=== PATIENT | female | born 1985 | race Caucasian/White ===

== ENCOUNTER 2017-12-27 21:54 | Emergency (ER) | payer SELFPAY ==
[2017-12-27 23:27] LABS: Hemoglobin 12.8 gm/dl (10.1-14.3); Mean Corpuscular HGB Conc 34 % (30-34); Mean Corpuscular Hemoglobin 28 pg (28-32); Mean Corpuscular Volume 84 fl (79-97); Platelet Count 288 K/mm3 (140-440); Red Blood Count 4.53 M/mm3 (3.65-5.03); Red Cell Distribution Width 14.4 % (13.2-15.2)
[2017-12-28] LABS: BUN/Creatinine Ratio 23; Blood Urea Nitrogen 14 mg/dL (7-17); Calcium 9.1 mg/dL (8.4-10.2); Hemolysis Index 6
[2017-12-28 00:45] LABS: Bacteria,Urine 1+ /HPF (Negative); Bilirubin,Urine NEG (Negative); Blood,Urine SM (Negative); Color,Urine Yellow (Yellow); Mucus,Urine 2+ /HPF; Protein,Urine <15 mg/dL mg/dL (Negative); Urobilinogen,Urine < 2.0 mg/dL (<2.0)
[2017-12-28] MEDS ORDERED: NORCO 5/325 PO ONE (03:07)
--- NOTE | 2017-12-28 03:07 | Emergency Department Report ---
HPI - General Chief Complaint: Vaginal Bleeding Time Seen by Provider: 12/28/17 02:53 - HPI HPI: Room 3 The patient is a 32-year-old female presenting with a chief complaint of vaginal bleeding. The patient states she hadn't had a cycle for the past 2 months. Patient states 2 days ago she developed intermittent left pelvic pain and then passed a large blood clot. The patient showed me a picture of the clot on her phone which appears to be mostly blood clot but the lighting makes it difficult to assess if there is tissue present as well. The patient states she's had vaginal bleeding since passing this clot and has been going through 3- 4 pads per day. The nausea and dizziness. Patient denies fever or any other forms of pain. The patient states she took home test when she missed her cycle and the results were equivocal Location: Pelvis Duration: Intermittent for 3 days Quality: Pressure Severity: 9/10 Modifying factors: [see above] Context: [see above] Mode of transportation: Not driving. Significant other is at bedside and he is driving ED Past Medical Hx - Past Medical History Previous Medical History?: No - Surgical History Additional Surgical History: Bilateral tubal ligation - Family History Family history: no significant - Social History Smoking Status: Never Smoker Substance Use Type: None (denies illicit drug use), Alcohol (occasional) - Medications Home Medications: Home Medications Medication Instructions Recorded Confirmed Last Taken Type Ibuprofen [Motrin 800 MG tab] 800 mg PO Q8HR PRN #20 tablet 12/28/17 Unknown Rx medroxyPROGESTERone ACETATE 5 mg PO QDAY #10 tablet 12/28/17 Unknown Rx [Provera] traMADol [Ultram] 50 mg PO Q6HR PRN #14 tablet 12/28/17 Unknown Rx ED Review of Systems ROS: Stated complaint: POSS MISCARRIAGE Other details as noted in HPI Constitutional: denies: fever Eyes: denies: eye pain ENT: denies: throat pain Respiratory: no symptoms reported Cardiovascular: denies: chest pain Endocrine: no symptoms reported Gastrointestinal: abdominal pain, nausea. denies: vomiting Genitourinary: abnormal menses Musculoskeletal: denies: back pain Neurological: denies: headache Physical Exam - Physical Exam Vital Signs: Vital Signs 12/27/17 12/27/17 12/28/17 22:03 22:45 02:30 Temperature 98.4 F 98.4 F Pulse Rate 79 83 65 Respiratory 18 18 14 Rate Blood Pressure 112/89 112/89 Blood Pressure 104/51 [Left] O2 Sat by Pulse 98 98 100 Oximetry 12/28/17 02:31 Temperature Pulse Rate Respiratory 16 Rate Blood Pressure Blood Pressure [Left] O2 Sat by Pulse 100 Oximetry Physical Exam: GENERAL: The patient is well-developed well-nourished female sitting on stretcher not appear to be in acute distress. [] HEENT: Normocephalic. Atraumatic. Extraocular motions are intact. Patient has moist mucous membranes. NECK: Supple. Trachea midline CHEST/LUNGS: Clear to auscultation. There is no respiratory distress noted. HEART/CARDIOVASCULAR: Regular. There is no tachycardia. There is no gallop rub or murmur. ABDOMEN: Abdomen is soft, with mild discomfort to palpation of the left lower quadrant. Patient has normal bowel sounds. There is no abdominal distention. SKIN: There is no rash. There is no edema. There is no diaphoresis. NEURO: The patient is awake, alert, and oriented. The patient is cooperative. The patient has normal speech MUSCULOSKELETAL: There is no evidence of acute injury. ED Course Vital Signs 12/27/17 12/27/17 12/28/17 22:03 22:45 02:30 Temperature 98.4 F 98.4 F Pulse Rate 79 83 65 Respiratory 18 18 14 Rate Blood Pressure 112/89 112/89 Blood Pressure 104/51 [Left] O2 Sat by Pulse 98 98 100 Oximetry 12/28/17 02:31 Temperature Pulse Rate Respiratory 16 Rate Blood Pressure Blood Pressure [Left] O2 Sat by Pulse 100 Oximetry ED Medical Decision Making - Lab Data Result diagrams: 12/27/17 23:09 12/27/17 23:09 Laboratory Tests 12/27/17 12/27/17 12/27/17 23:09 23:09 23:09 WBC 7.4 RBC 4.53 Hgb 12.8 Hct 38.0 MCV 84 MCH 28 MCHC 34 RDW 14.4 Plt Count 288 Sodium 140 Potassium 4.2 Chloride 102.0 Carbon Dioxide 25 Anion Gap 17 BUN 14 Creatinine 0.6 L Estimated GFR > 60 BUN/Creatinine Ratio 23 Glucose 114 H Calcium 9.1 HCG, Quant < 2 Urine Color Urine Turbidity Urine pH Ur Specific [place] Urine Protein Urine Glucose (UA) Urine Ketones Urine Blood Urine Nitrite Urine Bilirubin Urine Urobilinogen Ur Leukocyte Esterase Urine WBC (Auto) Urine RBC (Auto) U Epithel Cells (Auto) Urine Bacteria (Auto) Urine Mucus 12/27/17 23:12 WBC RBC Hgb Hct MCV MCH MCHC RDW Plt Count Sodium Potassium Chloride Carbon Dioxide Anion Gap BUN Creatinine Estimated GFR BUN/Creatinine Ratio Glucose Calcium HCG, Quant Urine Color Yellow Urine Turbidity Slightly-cloudy Urine pH 5.0 Ur Specific [place] 1.031 H Urine Protein <15 mg/dl Urine Glucose (UA) Neg Urine Ketones Neg Urine Blood Sm Urine Nitrite Neg Urine Bilirubin Neg Urine Urobilinogen < 2.0 Ur Leukocyte Esterase Lg Urine WBC (Auto) 23.0 H Urine RBC (Auto) 12.0 U Epithel Cells (Auto) 5.0 Urine Bacteria (Auto) 1+ Urine Mucus 2+ - Radiology Data Radiology results: report reviewed (pelvic ultrasound), image reviewed (pelvic ultrasound) [facility] [address] [place] [address] Ultrasound Report Signed Patient: COREEN VILLAREAL MR#: [id number] : 1985 Acct:[id number] Age/Sex: 32 / F ADM Date: 12/27/17 Loc: ED Attending Dr: Ordering Physician: JACK HOOK MD Date of Service: 12/28/17 Procedure(s): US transvaginal Accession Number(s): [id number] cc: JACK HOOK MD FINAL REPORT EXAM : US TRANSVAGINAL HISTORY: menorrhagia TECHNIQUE: Transvaginal imaging was obtained the pelvis. FINDINGS: The uterus is anteverted measuring 8.3 cm x 4.2 cm x 7.3 cm. The endometrial thickness is 1.9 mm. The myometrium is homogeneous. In the cervix is a nabothian cysts with internal echoes measuring 1.3 cm in diameter. Free fluid is not seen. The left ovary is normal size contour and echotexture measuring 2.6 cm x 1.8 cm x 1.7 cm. The right ovary measures 3.2 cm x 1.6 cm x 2.8 cm. Within the right ovary is a benign follicle measuring 8 mm in diameter. IMPRESSION: Normal-appearing endometrium. 1.3 cm nabothian cysts in the cervix. No evidence of ovarian torsion or free fluid. 8 millimeter benign follicle in the right ovary. Transcribed By: RB Dictated By: TARAS RUSHING MD Electronically Authenticated By: TARAS RUSHING MD Signed Date /Time: 12/28/17345 DD/ 5 TD/TT: 12/28/17345 - Medical Decision Making Patient states she been going through approximately 3-4 pads per day and her normal cycle she usually uses one to 2 pads per day. The patient states her normal cycle lasts approximately 3-4 days. Patient will be given a prescription for Provera but she was urged not to begin taking it unless her cycles persisted over the next 3 days and continue to be heavier than normal. Patient verbalized understanding. - Differential Diagnosis menorrhagia, dysmenorrhea, pelvic cramping, ovarian cyst Critical care attestation.: If time is entered above; I have spent that time in minutes in the direct care of this critically ill patient, excluding procedure time. ED Disposition Clinical Impression: Abnormal vaginal bleeding Disposition: TO HOME OR SELFCARE Is pt being admited?: No Does the pt Need Aspirin: No Condition: Stable Instructions: Menorrhagia (ED) Additional Instructions: Return to the emergency department immediately should you develop worsening symptoms, fever, inability to tolerate food or liquid or any other concerns. Prescriptions: Ibuprofen [Motrin 800 MG tab] 800 mg PO Q8HR PRN #20 tablet PRN Reason: Pain, Moderate (4-6) medroxyPROGESTERone ACETATE [Provera] 5 mg PO QDAY #10 tablet traMADol [Ultram] 50 mg PO Q6HR PRN #14 tablet PRN Reason: Pain Referrals: AGUEDA ROSS JR, MD [Staff Physician] - 3-5 Days (Dr. Ross is a primary physician. Please follow up with him to be established as a patient) [facility] [Provider Group] - 3-5 Days (Please follow up with my OB/ [facility] for further evaluation) Time of Disposition: 04:24
--- NOTE | 2017-12-28 03:52 | Ultrasound Report ---
FINAL REPORT EXAM: US PELVIC COMPLETE HISTORY: menorrhagia TECHNIQUE: Transabdominal imaging was obtained of the pelvis. FINDINGS: The uterus is anteverted measuring 8.3 cm x 4.2 cm x 7.3 cm. The endometrial thickness is 1.9 mm. The myometrium is homogeneous. In the cervix there is a nabothian cyst measuring 1.3 cm in diameter. Free fluid is not seen. The left ovary is normal size contour and echotexture measuring 2.6 cm x 1.8 cm x 1.7 cm. The right ovary is normal size contour and echotexture measuring 3.2 cm x 0.8 cm x 2.8 cm. Within the right ovary is an 8 millimeter follicle. IMPRESSION: 1.3 cm nabothian cyst in the cervix. No evidence of ovarian torsion or free fluid. Benign-appearing follicle in the right ovary measuring 8 mm in diameter.
--- NOTE | 2017-12-28 03:53 | Ultrasound Report ---
FINAL REPORT EXAM: US TRANSVAGINAL HISTORY: menorrhagia TECHNIQUE: Transvaginal imaging was obtained the pelvis. FINDINGS: The uterus is anteverted measuring 8.3 cm x 4.2 cm x 7.3 cm. The endometrial thickness is 1.9 mm. The myometrium is homogeneous. In the cervix is a nabothian cysts with internal echoes measuring 1.3 cm in diameter. Free fluid is not seen. The left ovary is normal size contour and echotexture measuring 2.6 cm x 1.8 cm x 1.7 cm. The right ovary measures 3.2 cm x 1.6 cm x 2.8 cm. Within the right ovary is a benign follicle measuring 8 mm in diameter. IMPRESSION: Normal-appearing endometrium. 1.3 cm nabothian cysts in the cervix. No evidence of ovarian torsion or free fluid. 8 millimeter benign follicle in the right ovary.
[2017-12-28 04:32] VITALS: BP 109/66
== END 2017-12-28 04:34 | disposition home or self-care (01) ==
LOC: ED 21:54
DX: N93.9 Abnormal uterine and vaginal bleeding, unspecified (principal); R10.2 Pelvic and perineal pain; R11.0 Nausea; Z98.51 Tubal ligation status; Z88.8 Allergy status to other drugs, medicaments and biological substances
CPT/HCPCS: 36415; 76830; 76856; 80048; 81001; 84702; 85027; 99284

== ENCOUNTER 2018-10-27 08:45 | Emergency (ER) | payer MEDICAID, OTHER ==
[2018-10-27 08:52] VITALS: BP 130/100
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
[2018-10-27 09:36] LABS: Hematocrit 38.3 % (30.3-42.9); Hemoglobin 12.8 gm/dl (10.1-14.3); Mean Corpuscular HGB Conc 34 % (30-34); Mean Corpuscular Volume 84 fl (79-97); Platelet Count 281 K/mm3 (140-440); Red Blood Count 4.57 M/mm3 (3.65-5.03); Red Cell Distribution Width 14.5 % (13.2-15.2)
[2018-10-27 09:53] LABS: BUN/Creatinine Ratio 23; Blood Urea Nitrogen 14 mg/dL (7-17); Hemolysis Index 5
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
[2018-10-27] MEDS ORDERED: DECADRON IM ONE (11:08)
[2018-10-27] MEDS ORDERED: NORCO 5/325 PO ONE (11:08)
[2018-10-27] MEDS ORDERED: IBUPROFEN PO ONE (11:37)
[2018-10-27] MEDS ORDERED: IBUPROFEN ONE (11:39)
== END 2018-10-27 12:04 | disposition home or self-care (01) ==
LOC: ED 08:45
DX: S00.83XA Contusion of other part of head, initial encounter (principal); Y04.8XXA Assault by other bodily force, initial encounter; Y93.89 Activity, other specified; Y92.89 Other specified places as the place of occurrence of the external cause; Y99.8 Other external cause status
CPT/HCPCS: 36415; 70450; 70486; 72125; 80048; 84702; 85027; 96372; 99284; J1100

== ENCOUNTER 2019-11-07 05:59 | Emergency (ER) | payer SELFPAY ==
[2019-11-07] MEDS ORDERED: ONDANSETRON 4 MG ODT TAB PO ONE (06:36)
--- NOTE | 2019-11-07 06:39 | Emergency Department Report ---
- General Chief Complaint: Upper Respiratory Infection Stated Complaint: SORE THROAT, COUGH, SHORT OF BREATH Time Seen by Provider: 11/07/19 06:31 Source: patient Mode of arrival: Ambulatory Limitations: No Limitations - History of Present Illness Initial Comments: Patient is 34-year-old female with history of asthma. Patient presented to the ER complaining of fever, congestion, sore throat and difficulty breathing for the last 2 days. 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 Patient stated that she has been tested on Thursday but she does not have the results yet. Patient stated that she is having decreased appetite and diarrhea. MD Complaint: fever, cough, sore throat, nasal congestion - Related Data Previous Rx's Medication Instructions Recorded Last Taken Type Ibuprofen [Motrin 800 MG tab] 800 mg PO Q8HR PRN #20 tablet 12/28/17 Unknown Rx medroxyPROGESTERone ACETATE 5 mg PO QDAY #10 tablet 12/28/17 Unknown Rx [Provera] traMADoL [Ultram] 50 mg PO Q6HR PRN #14 tablet 12/28/17 Unknown Rx Allergies Allergy/AdvReac Type Severity Reaction Status Date / Time diphenhydramine Allergy Unknown Verified 10/27/18 08:49 [From Benadryl] ED Review of Systems ROS: Stated complaint: SORE THROAT, COUGH, SHORT OF BREATH Other details as noted in HPI Comment: All other systems reviewed and negative Constitutional: chills, fever Respiratory: cough, shortness of breath. denies: wheezing Cardiovascular: denies: chest pain, palpitations Gastrointestinal: nausea, diarrhea. denies: abdominal pain, vomiting, constipation, hematemesis, melena, hematochezia Musculoskeletal: denies: back pain Neurological: denies: headache ED Past Medical Hx - Past Medical History Previous Medical History?: Yes Hx Asthma: Yes - Surgical History Past Surgical History?: Yes Hx Cholecystectomy: Yes Additional Surgical History: Bilateral tubal ligation - Social History Smoking Status: Never Smoker Substance Use Type: None - Medications Home Medications: Home Medications Medication Instructions Recorded Confirmed Last Taken Type Ibuprofen [Motrin 800 MG tab] 800 mg PO Q8HR PRN #20 tablet 12/28/17 Unknown Rx medroxyPROGESTERone ACETATE 5 mg PO QDAY #10 tablet 12/28/17 Unknown Rx [Provera] traMADoL [Ultram] 50 mg PO Q6HR PRN #14 tablet 12/28/17 Unknown Rx ED Physical Exam - General Limitations: No Limitations General appearance: alert, in no apparent distress - Head Head exam: Present: atraumatic, normocephalic, normal inspection - Eye Eye exam: Present: normal appearance Pupils: Present: normal accommodation - ENT ENT exam: Present: normal exam, normal orophraynx, mucous membranes moist - Neck Neck exam: Present: normal inspection, full ROM. Absent: tenderness, men ingismus, lymphadenopathy, thyromegaly - Respiratory Respiratory exam: Present: normal lung sounds bilaterally. Absent: respiratory distress, wheezes - Cardiovascular Cardiovascular Exam: Present: regular rate, normal rhythm, normal heart sounds - GI/Abdominal GI/Abdominal exam: Present: soft, normal bowel sounds. Absent: distended, tenderness, guarding, rebound, rigid, organomegaly, mass, bruit, pulsatile mass, hernia - Extremities Exam Extremities exam: Present: normal inspection, full ROM, normal capillary refill. Absent: tenderness, calf tenderness - Back Exam Back exam: Present: normal inspection, full ROM. Absent: CVA tenderness (R), CVA tenderness (L) - Neurological Exam Neurological exam: Present: alert, oriented X3, CN II-XII intact, normal gait, reflexes normal. Absent: motor sensory deficit - Psychiatric Psychiatric exam: Present: normal mood - Skin Skin exam: Present: warm, intact, normal color ED Course Vital Signs 11/07/19 11/07/19 11/07/19 06:11 06:28 06:30 Temperature 97.5 F L Pulse Rate 87 Respiratory 18 Rate Blood Pressure 116/67 Blood Pressure 93/66 [Right] O2 Sat by Pulse 96 96 96 Oximetry 11/07/19 11/07/19 07:16 07:29 Temperature Pulse Rate Respiratory 18 Rate Blood Pressure 114/66 Blood Pressure [Right] O2 Sat by Pulse 96 98 Oximetry ED Medical Decision Making - Lab Data Result diagrams: 11/07/19 06:51 11/07/19 06:51 - Radiology Data Radiology results: report reviewed - Medical Decision Making Patient is 34-year-old female with history of asthma. Patient presented to the ER complaining of fever, congestion, sore throat and difficulty breathing for the last 2 days. 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 Patient stated that she has been tested on Thursday but she does not have the results yet. Patient stated that she is having decreased appetite and diarrhea Patient received Zofran and stated that helped a lot with her nausea. No vomiting observed in the ER. Labs reviewed and is unremarkable including a negative strep test. Chest x-ray is unremarkable. Patient does not meet criteria for admission and patient advised to follow-up with her primary care physician for her COVID-19 PCR test results. Patient also advised to do a self quarantine. Patient advised to return to the ER if her symptoms getting worse. Critical care attestation.: If time is entered above; I have spent that time in minutes in the direct care of this critically ill patient, excluding procedure time. ED Disposition Clinical Impression: Suspected COVID-19 virus infection, Upper respiratory infection Disposition: TO HOME OR SELFCARE Is pt being admited?: No Condition: Stable Instructions: Upper Respiratory Infection (ED) Referrals: PRIMARY CARE, [Primary Care Provider] - 3-5 Days
--- NOTE | 2019-11-07 07:03 | XRay Report ---
CHEST PA AND LATERAL VIEWS INDICATION: fever,cough. COMPARISON: None. FINDINGS: Support devices: None. Heart: Within normal limits. Lungs/Pleura: No acute pulmonary or pleural findings. IMPRESSION: 1. No acute findings. Signer Name: Pierre Gallardo MD Signed: 11/07/2019 6:58 AM Workstation Name: [id number]
[2019-11-07 07:19] LABS: Basophils % (Auto) 0.7 % (0.0-1.8); Eosinophils # (Auto) 0.5 K/mm3 (0.0-0.4); Eosinophils % (Auto) 6.9 % (0.0-4.3); Hematocrit 42.5 % (30.3-42.9); Hemoglobin 13.6 gm/dl (10.1-14.3); Lymphocytes % (Auto) 30.3 % (13.4-35.0); Mean Corpuscular HGB Conc 32 % (30-34); Mean Corpuscular Volume 86 fl (79-97); Monocytes # (Auto) 0.5 K/mm3 (0.0-0.8); Monocytes % (Auto) 7.1 % (0.0-7.3); Platelet Count 311 K/mm3 (140-440); Red Blood Count 4.97 M/mm3 (3.65-5.03); Red Cell Distribution Width 13.9 % (13.2-15.2)
[2019-11-07 08:21] LABS: BUN/Creatinine Ratio 15; Blood Urea Nitrogen 9 mg/dL (7-17)
[2019-11-07 08:22] LABS: Alanine Aminotransferase 26 units/L (7-56); Albumin 4.3 g/dL (3.9-5); Calcium 9.4 mg/dL (8.4-10.2)
[2019-11-07 08:23] LABS: Hemolysis Index 6
[2019-11-07 09:10] VITALS: BP 105/57
== END 2019-11-07 09:15 | disposition home or self-care (01) ==
LOC: ED 05:59
DX: J06.9 Acute upper respiratory infection, unspecified (principal); J45.909 Unspecified asthma, uncomplicated; Z88.8 Allergy status to other drugs, medicaments and biological substances; Z79.899 Other long term (current) drug therapy; Z90.49 Acquired absence of other specified parts of digestive tract; Z98.51 Tubal ligation status; Z20.828 Contact with and (suspected) exposure to other viral communicable diseases
CPT/HCPCS: 36415; 71046; 80053; 85025; 87116; 87430; Q0162